=== PATIENT | male | born 1985 | race Caucasian/White ===

== ENCOUNTER → 2021-01-19 09:21 | Outpatient (CLI) | payer OTHER, SELFPAY ==
--- NOTE | 2021-01-19 | DI.ECHO.S_ITS ---
[place] [facility]---------+ [facility] +---------+ : : [address] : [address] : : : : [id number] : : : : Phone: [phone]---------+ Echocardiogram Report + + :Name: AIMEE MCFARLAND Study Date: 01/19/2021 Height: 70 in : :[facility] ReadingLocation: Weight: 165 lb : : Gender: Male BSA: 1.9 m2 : :: 1985 Age: 35 yrs BP: 115/75 mmHg: :Reason For Study: ENCOUNTER FOR GENERAL ADULT MEDICAL : :EXAMINATION : :Ordering Physician: JALEEL COLVIN, : :VANI Performed By: Tatiana Chao : :Referring: VANI BOWMAN : + + Interpretation Summary Normal left ventricle size with low normal systolic function. The ejection fraction is 50-55%. Left ventricular global longitudinal strain average is -17.4%. Normal right ventricle and both atria. No valvular abnormality. Procedure: A two-dimensional transthoracic echocardiogram with color flow and Doppler was performed. The study quality was technically adequate. There is no prior echocardiogram noted for this patient. The patient was in sinus rhythm with heart rates between 55-67 bpm during the exam. Left Ventricle: The left ventricle is normal in size and wall thickness. Left ventricular systolic function is low normal. The ejection fraction is estimated to be 50-55%. Left ventricular global longitudinal strain average is -17.4%. There are no focal wall motion abnormalities. Diastolic parameters suggest probable normal left ventricular diastolic function and normal filling pressures. Right Ventricle: The right ventricle is normal in size and function. Atria: Both atria are normal in size. There is no Doppler evidence for an interatrial shunt. Mitral Valve: The mitral valve is normal in structure and function. There is trace mitral regurgitation. Aortic Valve: The aortic valve is trileaflet. The aortic valve opens well. There is no aortic valve stenosis. No aortic regurgitation is present. Tricuspid Valve: The tricuspid valve is normal in structure and function. There is trace tricuspid regurgitation. Pulmonary artery pressures cannot be estimated because of the lack of a measurable TR jet velocity but the IVC suggests a CVP of around 3 mmHg. Pulmonic Valve: The pulmonic valve leaflets are thin and pliable; valve motion is normal. There is no pulmonic valvular regurgitation. Great Vessels: The aortic root is normal size. The dimensions of the ascending aorta are normal. The IVC is of normal diameter and collapses greater than 50% with a sniff. This suggests a low right atrial pressure of 3 mm Hg. Pericardium/ Pleura There is no pericardial effusion. There is no pleural effusion. MMode/2D Measurements & Calculations LVIDd: 5.2 cm LVOT diam: 2.2 cm LVIDs: 3.8 cm Ao root diam: 3.0 cm FS: 26.5 % asc Aorta Diam: 2.8 cm IVSd: 0.70 cm Ao Arch Diam (Prox Trans): 2.6 cm LVPWd: 0.75 cm LV almaguer. diameter/BSA (cm/m^2): 2.7 LV sys. diameter/BSA (cm/m^2): 2.0 LA A2 area: 18.9 cm2 RA long axis: 4.8 cm LA A4 area: 17.3 cm2 RA area: 17.0 cm2 LA length (vol): 5.1 cm RA vol: 50.6 ml LA vol: 54.0 ml RA : 26.3 ml/m2 LA vol index: 28.1 ml/m2 IVC diam: 1.5 cm RVD1 (basal): 3.9 cm TAPSE: 2.0 cm Doppler Measurements & Calculations Ao V2 max: 104.2 cm/sec LVOT Max Андрей: 71.2 cm/sec Ao V2 mean: 73.3 cm/sec LV V1 max P.0 mmHg Ao max P.3 mmHg LV V1 VTI: 16.6 cm Ao mean P.4 mmHg MOJGAN(I,D): 3.0 cm2 Ao V2 VTI: 22.0 cm MOJGAN(V,D): 2.7 cm2 sev ratio: 0.76 MOJGAN indexed to BSA (cm^2/m^2): 1.5 MV E max андрей: 52.2 cm/sec PA V2 max: 93.0 cm/sec MV A max андрей: 26.7 cm/sec PA V2 mean: 62.1 cm/sec MV E/A: 2.0 PA mean P.8 mmHg Med Peak E' Андрей: 10.7 cm/sec PA pr(Accel): 19.1 mmHg E/E' med: 4.9 Lat Peak E' Андрей: 18.3 cm/sec E/E' lat: 2.8 E/e' average: 3.9 MV dec time: 0.22 sec SVLVOT): 65.2 ml Electronically signed by: Shahla Sales on Reading Physician:01/19/2021 03:28 PM
== END ==
PROVIDERS: Referring Provider Nurse Practitioner Family; Visit Provider Nurse Practitioner Family
DX: Z00.00 Encounter for general adult medical examination without abnormal findings (principal)
CPT/HCPCS: 93306